=== PATIENT | male | born 1985 | race Hispanic/Latino ===

== ENCOUNTER 2018-04-17 09:34 | Emergency (ER) | payer OTHER ==
[2018-04-17] MEDS ORDERED: traMADol HCl 50 MG TAB ONE (09:52)
[2018-04-17] MEDS ORDERED: Ibuprofen 800 MG TAB ONE (09:52)
[2018-04-17] MEDS ORDERED: Adacel (T-DAP) 0.5 ML VIAL ONE (09:53)
--- NOTE | 2018-04-17 19:01 | RAD ---
LEFT HAND THREE VIEWS: 04/17/18 A mildly comminuted fracture of the proximal phalanx of the index finger is present. There is no sign ificant displacement. The remainder of the hand and wrist appear intact. IMPRESSION: Fracture of the proximal phalanx of the index finger. POS: HOME
== END 2018-04-17 10:23 | disposition home or self-care (01) ==
LOC: BURERS 09:34
DX: S62.611A Displaced fracture of proximal phalanx of left index finger, initial encounter for closed fracture (principal); W20.8XXA Other cause of strike by thrown, projected or falling object, initial encounter; Y92.69 Other specified industrial and construction area as the place of occurrence of the external cause
CPT/HCPCS: 26720; 90471; 90715